=== PATIENT | female | born 1990 | race Caucasian/White ===

== ENCOUNTER 2017-09-30 06:43 | Outpatient (CLI) | payer MEDICAID ==
[2017-09-30 06:55] VITALS: BP 93/55
== END 2017-09-30 08:25 | disposition home or self-care (01) ==
LOC: TRG 06:43
PROVIDERS: ATTEND Obstetrics & Gynecology
DX: O47.03 False labor before 37 completed weeks of gestation, third trimester (principal); Z3A.36 36 weeks gestation of pregnancy; O99.333 Smoking (tobacco) complicating pregnancy, third trimester
CPT/HCPCS: 59025

== ENCOUNTER 2017-10-07 23:32 | Outpatient (CLI) | payer MEDICAID ==
[2017-10-07 23:59] VITALS: BP 110/55
== END 2017-10-08 00:42 | disposition home or self-care (01) ==
LOC: TRG 23:32
PROVIDERS: ATTEND Obstetrics & Gynecology
DX: O47.1 False labor at or after 37 completed weeks of gestation (principal); Z87.891 Personal history of nicotine dependence; Z3A.37 37 weeks gestation of pregnancy
CPT/HCPCS: 59025

== ENCOUNTER 2017-10-26 01:35 | Inpatient (IN) | payer MEDICAID ==
[2017-10-26] MEDS ORDERED: LACTATED RINGERS 1,000 ML ONE ×2 (02:04→03:23)
[2017-10-26] MEDS ORDERED: PITOCin/NS 20 UNIT/1000ML DRIP 20,000 MILLIUNITS/1,000 ML BAG IV ONE (03:13)
[2017-10-26] MEDS ORDERED: BICITRA ONE (03:13)
[2017-10-26] MEDS ORDERED: PEPCID IV ONE ×2 (03:14→04:19)
[2017-10-26] MEDS ORDERED: REGLAN ONE (03:14)
--- NOTE | 2017-10-26 03:20 | History and Physical Report ---
History of Present Illness Date of examination: 10/26/17 (@ 0300) Chief complaint: leakage of fluid around 29 History of present illness: 27 yo Hisp Fe with MORELIA 10/24/2017 presents to triage with c/o SROM since 29. HIstory obtained through black belt. States she receives care at the [facility]. No records to review. States she had about 5 visits, started care 6-7 months pf . States that she was told she would have a C/S on 11/01/2017. Previous hx C/S with 2nd baby because "baby was too big" around [address]ivered at [facility] in 2013 for C/S. No operative report available. Discussed through black belt risks of unknown scar and labor. Pt and verbalized through black belt understanding and agreed to go ahead with repeat C/S. Risks of surgery discussed through black belt to include, but is not limited to, infection, hemorrhage, injury to other organs, and maternal complications to include . Patient and verbalized understanding through black belt. Unknown GBS. NO allergies. Last ate or drank around 5-6 pm. Pt states that she has "low platelets" and was given a lab slip yesterday to have blood drawn. Has not seen perinatologist. States has had low platelets with each . Dr Cyr notified. Cervix FT/long. Contractions present, but spaced out. FHT's category I. IUP 40 2/7 weeks per MORELIA per pt Hx thrombocytopenia per pt Prev C/S with unknown scar Limited care Plan: admit, labs, NPO, IVF, prepare for repeat C/S, await platelets results, Past History Past Medical History: no pertinent history Past Surgical History: section (2013) Family/Genetic History: none Social history: no significant social history - Obstetrical History Expected Date of Delivery: 10/24/17 Actual Gestation: 40 Week(s) 2 Day(s) : 4 Para: 2 Hx # Term Pregnancies: 2 Induced : 1 Number of Living Children: 2 Medications and Allergies Allergies Allergy/AdvReac Type Severity Reaction Status Date / Time No Known Allergies Allergy Unverified 10/07/17 23:49 Home Medications Medication Instructions Recorded Confirmed Last Taken Type Pnv,Calcium 72/Iron/Folic Acid 1 tab PO QDAY 10/07/17 10/07/17 10/07/17 History [Pnv Plus Multivit Tab] Review of Systems All systems: negative - Vital Signs Vital signs: Vital Signs Pulse BP 67 102/64 10/26/17 01:50 10/26/17 01:50 Temp Pulse Resp BP Pulse Ox 67 102/64 10/26/17 01:50 10/26/17 01:50 - Physical Exam Breasts: Positive: normal Cardiovascular: Regular rate, No murmurs Lungs: Positive: Clear to auscultation Abdomen: Positive: other (gravid, transverse scar on lower abd) Genitourinary (Female): Positive: normal external genitalia, normal perenium Uterus: Positive: enlarged (gravid) Extremities: Positive: normal - Obstetrical FHR: category 1 Uterine Contraction Monitor Mode: External Cervical Dilatation: 1 (per RN) Cervical Effacement Percentage: 30 station: -4 Uterine Contraction Pattern: Irregular Uterine Contraction Intensity: Mild Results Result Diagrams: 10/26/17 02:40 All other labs normal. Assessment and Plan - Patient Problems (1) Spontaneous rupture of amniotic membranes Current Visit: Yes Status: Acute (2) Previous section Current Visit: Yes Status: Acute (3) Limited care Current Visit: Yes Status: Acute (4) Thrombocytopenia Current Visit: Yes Status: Acute
[2017-10-26] MEDS ORDERED: LACTATED RINGERS 1,000 ML IV ONE (03:34)
[2017-10-26 04:05] LABS: Hematocrit 27.3 % (30.3-42.9); Hemoglobin 9.3 gm/dl (10.1-14.3); Mean Corpuscular HGB Conc 34 % (30-34); Mean Corpuscular Hemoglobin 28 pg (28-32); Mean Corpuscular Volume 82 fl (79-97); Red Blood Count 3.34 M/mm3 (3.65-5.03); Red Cell Distribution Width 15.9 % (13.2-15.2)
[2017-10-26 04:08] LABS: Platelet Count 42 K/mm3 (140-440)
[2017-10-26] MEDS ORDERED: NACL 0.9% 500 ML 500 ML IV ONE (04:15)
[2017-10-26] MEDS ORDERED: REGLAN IV ONE (04:19)
[2017-10-26] MEDS ORDERED: BICITRA PO ONE (04:19)
[2017-10-26] MEDS ORDERED: BRETHINE SUB-Q ONE ×2 (04:43→05:53)
[2017-10-26] MEDS ORDERED: PITOCin/NS 20 UNIT/1000ML DRIP 20 UNITS/1,000 ML BAG IV SCH ×2 (05:00→17:00)
[2017-10-26] MEDS ORDERED: ANCEF/STERILE WATER 2 GM/20 ML 2 GM/20 ML SYRINGE IV NR (05:00)
[2017-10-26] MEDS ORDERED: LACTATED RINGERS 1,000 ML IV SCH (05:00)
[2017-10-26] MEDS ORDERED: POLYCILLIN/NS 2 GM/100 ML 2 GM/100 ML BAG IV SCH (05:30)
--- NOTE | 2017-10-26 05:31 | Event Note ---
Date: 10/26/[address] Cyr notified. Plan: Transfuse 2 units platelets, Brethine 0.25 mg sub cut.
--- NOTE | 2017-10-26 06:12 | Progress Note ---
Assessment and Plan - Patient Problems (1) 39 weeks gestation of Current Visit: Yes Status: Acute (2) SROM (spontaneous rupture of membranes) Current Visit: Yes Status: Acute (3) Previous section Current Visit: Yes Status: Acute Plan to address problem: Patient was not scheduled for repeat C/section. Repeat C/section was discussed with her. Risks and benefits of the procedure were discussed with her such as infection, hemorrhage requiring blood transfusion, injury to the bowel, bladder and blood vessels. She expressed understanding, her questions were answered, she gave her informed consent. Terbutaline. Keep NPO. IV hydration. Routine admitting labs. Will transfuse 2 units of platelets before the C/section. (4) Late care Current Visit: Yes Status: Acute (5) Poor historian Current Visit: Yes Status: Acute (6) Thrombocytopenia affecting Current Visit: Yes Status: Acute Plan to address problem: Thrombocytopenia, suspect ITP. Will do PT/PTT/INR. OB Sonogram. Will transfuse 2 units of platelet. F/U Platelet level before proceeding with C/ section. Will notify NICU. (7) Anemia Current Visit: Yes Status: Acute Qualifiers: Anemia type: iron deficiency Subjective - Subjective Date of service: 10/26/17 Principal diagnosis: SIUP at 39 weeks 39 weeks and 1 days with SROM, previous C/ section. Interval history: Patient is a 27 year old , LMP 01/2017, EDC 11/01/17 at 39 weeks and 1 day gestation who presented to the triage complaining of leaking fluid since around 3 AM. She denies any contractions or bleeding. She reports good movement. She recieves [facility] at [place] and states that she started care at 4-5 months and has been there only 5 times. Records are not available. The patient is a poor historian and most of the medical history was gathered from the . She also said that she had low platelets and was supposed to have labs yesterday but she did not do it. She had low platelet in her prior pregnancies as well. But, she can't tell if she has seen a rn orthopaedic. Current platelet is 42. She has no active bleeding. Objective - Vital Signs Vital Signs: Vital Signs - 12hr 10/26/17 10/26/17 10/26/17 01:50 03:51 04:03 Pulse Rate 67 65 76 Blood Pressure 102/64 115/66 O2 Sat by Pulse 93 Oximetry 10/26/17 10/26/17 10/26/17 04:08 04:13 04:18 Pulse Rate 67 75 70 Blood Pressure O2 Sat by Pulse 100 98 98 Oximetry 10/26/17 10/26/17 10/26/17 04:23 04:28 04:33 Pulse Rate 70 72 65 Blood Pressure O2 Sat by Pulse 99 97 99 Oximetry 10/26/17 10/26/17 10/26/17 04:38 04:43 04:48 Pulse Rate 75 78 78 Blood Pressure O2 Sat by Pulse 98 98 99 Oximetry 10/26/17 10/26/17 10/26/17 04:53 04:58 05:03 Pulse Rate 69 76 80 Blood Pressure O2 Sat by Pulse 98 99 99 Oximetry 10/26/17 10/26/17 10/26/17 05:08 05:13 05:18 Pulse Rate 73 97 H 109 H Blood Pressure O2 Sat by Pulse 98 99 98 Oximetry 10/26/17 10/26/17 10/26/17 05:23 05:28 05:33 Pulse Rate 111 H 105 H 113 H Blood Pressure O2 Sat by Pulse 99 99 100 Oximetry 10/26/17 05:38 Pulse Rate 121 H Blood Pressure O2 Sat by Pulse 100 Oximetry - Exam Cardiovascular: Normal S1, Normal S2 Lungs: Clear to auscultation Vulva: both: normal FHR: category 1 Uterine Contraction Monitor Mode: External Cervical Dilatation: 2 Cervical Effacement Percentage: 50 station: -2 Uterine Contraction Pattern: Irregular Uterine Contraction Intensity: Mild Deep Tendon Reflex Grade: Normal +2 - Labs Labs: Abnormal Labs 10/26/17 02:40 RBC 3.34 L Hgb 9.3 L Hct 27.3 L RDW 15.9 H Plt Count 42 L Laboratory Results - last 24 hr 10/26/17 10/26/17 10/26/17 02:40 02:40 04:55 WBC 6.0 RBC 3.34 L Hgb 9.3 L Hct 27.3 L MCV 82 MCH 28 MCHC 34 RDW 15.9 H Plt Count 42 L Hep Bs Antigen Non-reactive HIV 1&2 Antibody Rapid HIV P24 Antigen Blood Type O POSITIVE Antibody Screen Negative 10/26/17 04:55 WBC RBC Hgb Hct MCV MCH MCHC RDW Plt Count Hep Bs Antigen HIV 1&2 Antibody Rapid Non react HIV P24 Antigen Non react Blood Type Antibody Screen
--- NOTE | 2017-10-26 07:08 | Ultrasound Report ---
FINAL REPORT EXAM: US OB LIMITED HISTORY: SROM TECHNIQUE: A limited OB sonogram was obtained for evaluation of the amniotic fluid volume. FINDINGS: The MELLISSA is 14.2 cm which is normal. The heart rate is 147 BPM. The fetus is in cephalic presentation. IMPRESSION: Normal MELLISSA of 14.2 cm. The heart rate is 147 BPM. Cephalic presentation.
[2017-10-26 07:51] LABS: INR 0.9 (0.87-1.13)
[2017-10-26 07:52] LABS: Partial Thromboplastin Time 26.9 Sec. (24.2-36.6)
[2017-10-26] MEDS ORDERED: AMPICILLIN/NS 1 GM/50 ML 1 GM/50 ML BAG IV SCH (09:30)
--- NOTE | 2017-10-26 13:11 | Anesthesia Consultation ---
Anesthesia Consult and Med Hx Date of service: 10/26/17 - Airway Anesthetic Teeth Evaluation: Good (braces upper and lower) ROM Head & Neck: Adequate Mental/Hyoid Distance: Adequate Mallampati Class: Class II Intubation Access Assessment: Probably Good - Pre-Operative Health Status ASA Pre-Surgery Classification: ASA3 Proposed Anesthetic Plan: General - Pulmonary Hx Asthma: No - Cardiovascular System Hx Hypertension: No - Central Nervous System Hx Seizures: No Hx Psychiatric Problems: Yes (anxiety) - Endocrine Hx Renal Disease: No Hx Hypothyroidism: No Hx Hyperthyroidism: No - Hematic Hx Anemia: No Hx Sickle Cell Disease: No - Other Systems Hx Alcohol Use: No - Additional Comments Anesthesia Medical History Comments: Ideopathic thrombocytopenea
[2017-10-26] MEDS ORDERED: TORADOL IV PRN ×2 (13:15→16:19)
[2017-10-26] MEDS ORDERED: DILAUDID IV PRN (13:15)
[2017-10-26] MEDS ORDERED: ZOFRAN IV PRN ×2 (13:15→16:19)
--- NOTE | 2017-10-26 13:15 | Anesthesia Day of Surgery ---
Anesthesia Day of Surgery - Day of Surgery Patient Examined: Yes Patient H&P Reviewed: Yes Patient is NPO: Yes
[2017-10-26 14:20] LABS: Hematocrit 24.5 % (30.3-42.9); Hemoglobin 8.1 gm/dl (10.1-14.3); Mean Corpuscular HGB Conc 33 % (30-34); Mean Corpuscular Hemoglobin 27 pg (28-32); Mean Corpuscular Volume 82 fl (79-97); Red Blood Count 2.97 M/mm3 (3.65-5.03); Red Cell Distribution Width 15.8 % (13.2-15.2)
[2017-10-26 14:22] LABS: Platelet Count 82 K/mm3 (140-440)
[2017-10-26] MEDS ORDERED: XYLOCAINE MPF 2% ONE (15:06)
[2017-10-26] MEDS ORDERED: QUELICIN ONE (15:06)
[2017-10-26] MEDS ORDERED: DIPRIVAN 10 MG/ML IV ONE (15:06)
[2017-10-26] MEDS ORDERED: DILAUDID ONE (15:06)
[2017-10-26] MEDS ORDERED: ANCEF/STERILE WATER 2 GM/20 ML IV ONE (15:14)
[2017-10-26] MEDS ORDERED: NACL 0.9% IR ONE (15:26)
[2017-10-26] MEDS ORDERED: WATER FOR IRRIG STERILE IR ONE (15:26)
[2017-10-26] MEDS ORDERED: ZOFRAN ONE (15:50)
[2017-10-26] MEDS ORDERED: NEO SYNEPHRINE/NS Syringe(OR USE) IV ONE (15:52)
--- NOTE | 2017-10-26 16:16 | Operative Report ---
Operative Report Operative Report: Date of procedure: 10/26/2017 Pre-operative diagnosis: 1. Intrauterine at 40-2/7 weeks 2. Previous 3. Thrombocytopenia Post-operative diagnosis: Same Procedure name(s): Repeat low transverse section Surgeon: Eddie Akers MD Circuit Walker: None Anesthesia: Gen. endotracheal intubation by Dr. Ross EBL: 1000 mL Findings: A 3723 g female infant Apgars 8 at 1 minute 9 at 5 minutes. Clear amniotic fluid. Normal uterus. Normal tubes and ovaries bilaterally. Procedure: After the patient was prepped and draped in usual sterile fashion, and after general anesthesia was obtained, the skin knife was used to make a transverse skin incision through the previous skin scar. The incision was excised down to layer of the fascia, which was nicked in the midline and extended laterally using the Bovie cautery. The rectus muscles were dissected off the rectus fascia both superiorly and inferiorly. The rectus bellies in the midline, and the peritoneum was entered under direct visualization. The peritoneal incision was extended superiorly and inferiorly. A bladder flap was created and the bladder blade was then placed. The uterus was scored in a curvilinear linear fashion, entered in the midline revealing clear amniotic fluid. The infant's head was delivered onto the surgical field, and the oropharynx and nasopharynx were bulb suctioned. The rest of the ' s body was delivered, cord was doubly clamped and cut and the was handed to the waiting respiratory team. Cord blood was then obtained. The placenta was manually removed from the uterus, and the uterus removed from its normal anatomical position. After gentle uterine lavage, the incision was inspected and found to be without extensions. It was then closed in 2 layers using 0 Vicryl suture in a running interlocking fashion, the second layer imbricating the first. After good hemostasis was achieved, copious amounts or irrigation was performed, and the gutters were suctioned free of blood and blood clots. The Tisseel sealant was sprayed across the uterine incision. The uterus was then returned to its normal anatomical position, and after excellent hemostasis assured, the peritoneum was re-approximated using 3-0 Vicryl suture in a running interlocking fashion, and then the rectus muscles were re-approximated using 3-0 Vicryl suture in a [id number] configuration. The fascia was then re-approximated using 0 Vicryl suture in running interlocking fashion. The subcutaneous layer was made hemostatic using Bovie cautery, the Tisseel sealant was sprayed across the fascial incision and the skin edges re- approximated using 4-0 Vicryl suture in a sub-cuticular fashion. Patient tolerated the procedure well was transported to recovery in stable condition.
[2017-10-26] MEDS ORDERED: NARCAN 0.4 MG/1 ML IV PRN ×2 (16:19)
[2017-10-26] MEDS ORDERED: MOTRIN PO PRN (16:19)
[2017-10-26] MEDS ORDERED: SENOKOT PO PRN (16:19)
[2017-10-26] MEDS ORDERED: PHENERGAN PR PRN (16:19)
[2017-10-26] MEDS ORDERED: TUCKS PAD TP PRN (16:19)
[2017-10-26] MEDS ORDERED: PERCOCET 5/325 PO PRN (16:19)
[2017-10-26] MEDS ORDERED: NORCO 5/325 PO PRN (16:19)
[2017-10-26] MEDS ORDERED: MYLICON PO PRN (16:19)
[2017-10-26] MEDS ORDERED: METHERGINE IM PRN (16:19)
[2017-10-26] MEDS ORDERED: TYLENOL PO PRN (16:19)
[2017-10-26] MEDS ORDERED: LANSINOH TP PRN (16:19)
[2017-10-26] MEDS ORDERED: MILK OF MAGNESIA PO PRN (16:19)
[2017-10-26] MEDS ORDERED: NACL 0.9% 1000 ML 1,000 ML IV SCH (17:00)
[2017-10-26] MEDS ORDERED: SODIUM CHLORIDE FLUSH SYRINGE 10 ML IV SCH (17:00)
[2017-10-26] MEDS ORDERED: D5LR 1,000 ML IV SCH (17:00)
[2017-10-26] MEDS ORDERED: MORPHINE PCA 30MG/30ML IV SCH (17:00)
[2017-10-26] MEDS ORDERED: SUBLIMAZE ONE (18:26)
[2017-10-26 19:11] LABS: Hematocrit 22.9 % (30.3-42.9); Hemoglobin 7.5 gm/dl (10.1-14.3); Mean Corpuscular HGB Conc 33 % (30-34); Mean Corpuscular Hemoglobin 27 pg (28-32); Mean Corpuscular Volume 82 fl (79-97); Red Blood Count 2.79 M/mm3 (3.65-5.03)
[2017-10-26 19:14] LABS: Platelet Count 86 K/mm3 (140-440)
[2017-10-26] MEDS ORDERED: NACL 0.9% 500 ML 500 ML IV SCH (19:50)
[2017-10-26] MEDS ORDERED: TYLENOL PO ONE (19:51)
[2017-10-26] MEDS ORDERED: BENADRYL IV ONE (20:02)
[2017-10-26] MEDS: ANCEF/NS 1 GM/50 ML 1 GM/50 ML BAG IV SCH (20:57)
[2017-10-27 04:28] LABS: Hematocrit 24.5 % (30.3-42.9); Hemoglobin 8.1 gm/dl (10.1-14.3); Mean Corpuscular HGB Conc 33 % (30-34); Mean Corpuscular Hemoglobin 29 pg (28-32); Mean Corpuscular Volume 86 fl (79-97); Red Blood Count 2.85 M/mm3 (3.65-5.03); Red Cell Distribution Width 16.4 % (13.2-15.2)
[2017-10-27 04:30] LABS: Platelet Count 62 K/mm3 (140-440)
[2017-10-27] MEDS: ANCEF/NS 1 GM/50 ML 1 GM/50 ML BAG IV SCH (05:35)
[2017-10-27] MEDS ORDERED: BOOSTRIX IM ONE (06:00)
--- NOTE | 2017-10-27 08:57 | Progress Note ---
Assessment and Plan - Patient Problems (1) Status post Onset Date: 10/27/17 Current Visit: Yes Status: Acute Plan to address problem: A: S/P Repeat C Section - POD #1 Doing well Asymptomatic anemia - stable Thrombocytopenia - stable P: Continue RPOC Monitor bleeding Obtain Hematology consultation (2) Thrombocytopenia Onset Date: 10/27/17 Current Visit: Yes Status: Chronic Subjective - Subjective Date of service: 10/27/17 Principal diagnosis: s/p Repeat C Section - POD #1 Interval history: Pt is feeling well without complaints. She passed a large blood clot this morning, but denies dizziness or SOB. Patient reports: appetite normal, voiding normally, pain well controlled, ambulating normally, no dizzy ambulation, no flatus, no nauseated [place]: doing well, bottle feeding Objective - Vital Signs Latest vital signs: Vital Signs Temp Pulse Resp BP BP Pulse Ox 10/27/17 06:47 18 10/27/17 06:15 98.7 F 66 18 97/68 10/27/17 05:56 71 95 10/27/17 05:51 68 99 10/27/17 05:46 76 97 10/27/17 05:41 68 98 10/27/17 05:36 75 99 10/27/17 05:30 71 96 10/27/17 05:25 67 94 10/27/17 05:20 65 95 10/27/17 05:19 68 94 10/27/17 05:15 69 96 10/27/17 05:10 69 98 10/27/17 05:05 97.4 F L 18 L 20 100/51 100/51 97 10/27/17 04:28 94 H 99 10/27/17 04:23 97.6 F 64 20 97 10/27/17 04:18 64 99 10/27/17 03:39 67 100/54 10/27/17 03:09 67 96/54 10/27/17 02:39 69 96/56 10/27/17 02:09 73 101/56 10/27/17 01:39 73 97/52 10/27/17 01:09 75 94/51 10/27/17 00:39 78 92/53 10/27/17 00:08 80 91/54 10/27/17 00:03 80 91/55 10/26/17 23:58 67 97/53 08/14/18 23:53 83 92/55 14/18 23:48 83 95/58 14/18 23:43 76 88/54 14/18 23:33 78 91/55 14/18 23:22 75 93/54 14/18 23:05 75 18 93/54 14/18 22:52 76 92/47 1418 22:35 76 18 92/47 1418 22:16 82 94/51 18 22:05 97.4 F L 82 18 94/51 10/26/18 21:57 115 H 84/50 14/18 21:55 96 H 87/50 14/18 21:50 96.9 F L 96 H 20 87/50 100 18 21:41 93 H 88/52 18 21:26 123 H 79/44 14/18 21:11 117 H 86/50 18 21:00 106 H 18 87/53 18 20:56 106 H 87/53 18 20:41 113 H 81/48 14/18 20:30 116 H 80/48 14/18 20:26 116 H 80/48 10/26/18 20:13 116 H 97 18 20:11 103 H 88/55 18 20:08 116 H 96 18 20:04 92 H 93 18 20:03 109 H 97 18 20:00 97.1 F L 103 H 18 88/55 100 18 19:58 123 H 98 1418 19:56 96 H 92/59 18 19:53 96 H 98 1418 19:49 122 H 94 1418 19:48 100 H 98 1418 19:43 96 H 96 18 19:41 96 H 93/59 1418 19:38 90 97 1418 19:33 88 97 14/18 19:28 87 99 1418 19:26 77 91/57 18 19:20 106 H 98 1418 19:15 89 99 18 19:10 110 H 83/52 14/18 19:09 83 97 1418 19:05 96 H 95/53 1418 19:04 89 96 1418 19:00 94 H 93/56 14/18 18:59 79 98 1418 18:55 84 97/61 14/18 18:40 76 98/54 14/18 18:39 78 97 1418 18:35 83 99/57 14/18 18:34 74 98 14/18 18:30 73 98/53 14/18 18:29 86 97 18 17:50 63 15 111/62 98 18 17:35 97.8 F 58 L 13 108/63 96 1418 17:20 59 L 8 L 112/66 96 18 17:05 54 L 12 114/65 99 18 16:50 61 16 116/69 99 18 16:45 58 L 14 108/61 97 1418 16:40 67 17 106/40 99 18 16:35 97.7 F 64 20 108/60 96 18 15:01 97.7 F 16 18 14:04 72 100/59 14/18 12:51 82 100/64 18 12:50 83 100 18 12:45 84 99 18 12:40 97 H 99 18 12:35 79 98 18 12:30 84 99 14/18 12:25 85 100 14/18 12:20 88 99 14/18 12:18 84 95/59 14/18 12:15 81 98 1418 12:10 84 97 1418 12:05 79 98 1418 12:00 77 98 14/18 11:55 78 98 14/18 11:53 78 108/56 14/18 11:38 80 96/55 14/18 11:37 85 98 14/18 11:35 83 100/56 14/18 11:32 89 99 10/26/17 11:27 85 98/59 99 10/26/17 10:03 114 H 99 10/26/17 09:58 84 98 10/26/17 09:53 82 99 10/26/17 09:48 84 99 10/26/17 09:43 84 100 10/26/17 09:38 90 100 10/26/17 09:33 98 H 100 10/26/17 09:28 86 99 10/26/17 09:23 88 98 10/26/17 09:18 87 97 10/26/17 09:13 86 97 10/26/17 09:08 97 H 97 10/26/17 09:03 88 97 Intake and Output 10/26/17 10/27/17 10/27/17 22:59 06:59 14:59 Intake Total 1950 300 Output Total 700 250 Balance 1250 50 Intake: IV 1950 ANCEF/NS 1 GM/50 ML 1 gm 50 In 50 ml @ 100 mls/hr IV Q8H FORMERLY [facility], 1928–1983 Rx#:[id number] Intake, Free Water 300 Blood Product 0 0 Leukoreduced Red Blood 0 Cells Unit [id number] Leukoreduced Red Blood 0 0 Cells Unit [id number] Output: Urine 700 250 Indwelling Catheter 250 Other: Total, Output Amount 250 Estimated Blood Loss 700 - Exam Breasts: Present: deferred Cardiovascular: Present: Regular rate Lungs: Present: Clear to auscultation Abdomen: Present: normal appearance, soft Uterus: Present: normal, firm, fundal height below umbilicus Extremities: Present: normal Incision: Present: normal, dry, intact, dressed - Labs Labs: Abnormal lab results 10/26/17 10/26/17 10/26/17 Range/Units 02:40 13:52 18:45 WBC 15.7 H (4.5-11.0) K/mm3 RBC 2.97 L 2.79 L (3.65-5.03) M/mm3 Hgb 8.1 L 7.5 L (10.1-14.3) gm/dl Hct 24.5 L 22.9 L (30.3-42.9) % MCH 27 L 27 L (28-32) pg RDW 15.8 H 16.0 H (13.2-15.2) % Plt Count 82 L 86 L (140-440) K/mm3 Crossmatch See Detail 10/27/17 Range/Units 04:02 WBC 14.0 H (4.5-11.0) K/mm3 RBC 2.85 L (3.65-5.03) M/mm3 Hgb 8.1 L (10.1-14.3) gm/dl Hct 24.5 L (30.3-42.9) % MCH (28-32) pg RDW 16.4 H (13.2-15.2) % Plt Count 62 L (140-440) K/mm3 Crossmatch
--- NOTE | 2017-10-27 10:18 | Hem/Onc Consultation ---
History of Present Illness - Reason for Consult Consult date: 10/27/17 - History of Present Illness Note dictated. Follow CBCs. Check liver function tests. Anemia workup. If platelets are below 50,000, transfuse. Past History Social history: no significant social history Medications and Allergies Allergies Allergy/AdvReac Type Severity Reaction Status Date / Time No Known Allergies Allergy Unverified 10/07/17 23:49 Home Medications Medication Instructions Recorded Confirmed Last Taken Type Pnv,Calcium 72/Iron/Folic Acid 1 tab PO QDAY 10/07/17 10/26/17 10/25/17 10:00 History [Pnv Plus Multivit Tab] 1 Ferrous Sulfate [Feosol 325 MG tab] 325 mg PO BID #60 tablet 10/26/17 Unknown Rx HYDROcodone/APAP 5-325 [[place] 1 each PO Q6HR PRN #30 tablet 10/26/17 Unknown Rx 5/325] Ibuprofen [Motrin] 800 mg PO Q8HR PRN #30 tablet 10/26/17 Unknown Rx Vit Calc,Iron,Folic 1 each PO DAILY #30 tablet 10/26/17 Unknown Rx [ Vitamins] Active Meds: Active Medications Acetaminophen (Tylenol) 650 mg PO Q4H PRN PRN Reason: Fever >100.5/OJEDA Acetaminophen/Hydrocodone Bitart ([place] 5/325) 1 each PO Q4H PRN PRN Reason: Pain, Moderate (4-6) Ferrous Sulfate (Feosol) 325 mg PO QDAY CLAUDIA Oxytocin/Sodium Chloride (Pitocin/Ns 20 Unit/1000ml Drip) 20 units in 1,000 mls @ 0 mls/hr IV TITR CLAUDIA Last Admin: 10/26/17 16:30 Dose: 250 mls/hr Dextrose/Lactated Ringer's (D5lr) 1,000 mls @ 125 mls/hr IV DIRECT CLAUDIA Last Admin: 10/26/17 20:40 Dose: 125 mls/hr Sodium Chloride (Nacl 0.9% 1000 Ml) 1,000 mls @ 42 mls/hr IV DIRECT CLAUDIA Oxytocin/Sodium Chloride (Pitocin/Ns 20 Unit/1000ml Drip) 20 units in 1,000 mls @ 250 mls/hr IV DIRECT CLAUDIA Last Admin: 10/26/17 15:34 Dose: 250 mls/hr Ibuprofen (Motrin) 800 mg PO Q6H PRN PRN Reason: Pain, Mild (1-3) Ketorolac Tromethamine (Toradol) 30 mg IV Q6H PRN PRN Reason: Pain, Moderate (4-6) Stop: 10/31/17 16:18 Last Admin: 10/27/17 08:17 Dose: 30 mg Magnesium Hydroxide (Milk Of Magnesia) 30 ml PO QHS PRN PRN Reason: Constip Unrelieved By Senna Measles/Mumps/Rubella Vaccine Live (M-M-R Ii Vaccine) 0.5 ml SUB-Q .ONCE ONE Stop: 10/27/17 16:22 Methylergonovine Maleate (Methergine) 0.2 mg IM Q4H PRN PRN Reason: Uterine Bleeding Last Admin: 10/26/17 16:15 Dose: 0.2 mg Morphine Sulfate (Morphine Senior Customer Service Representative 30mg/30ml) 0 mg IV DIRECT CLAUDIA; Protocol Last Admin: 10/26/17 17:06 Dose: 1 mg Multi-Ingredient Ointment (Lansinoh) 1 applic TP PRN PRN PRN Reason: dryness/cracking Last Admin: 10/27/17 08:26 Dose: 1 applic Multivitamins/Iron/Calcium ( Vitamin) 1 each PO QDAY CLAUDIA Naloxone HCl (Narcan 0.4 Mg/1 Ml) 0.1 mg IV Q2MIN PRN PRN Reason: Res Rate </= 8 or 02 SAT < 92% Ondansetron HCl (Zofran) 4 mg IV Q8H PRN PRN Reason: Nausea And Vomiting Last Admin: 10/27/17 02:46 Dose: 4 mg Oxycodone/Acetaminophen (Percocet 5/325) 2 tab PO Q6H PRN PRN Reason: Pain, Moderate (4-6) Promethazine HCl (Phenergan) 25 mg SD Q6H PRN PRN Reason: N/V IF NPO AND NO IV ACCESS Senna (Senokot) 17.2 mg PO QHS PRN PRN Reason: Constipation Simethicone (Mylicon) 80 mg PO Q6H PRN PRN Reason: Gas pain Sodium Chloride (Sodium Chloride Flush Syringe 10 Ml) 10 ml IV PRN CLAUDIA Witch Sushma/Glycerin (Tucks Pad) 1 each TP PRN PRN PRN Reason: Hemorrhoids/cleansing/soothing Exam - Constitutional Vitals: Last Vital Signs Temp 98.5 F 10/27/17 08:56 Pulse 70 10/27/17 08:56 Resp 18 10/27/17 08:56 BP 93/54 10/27/17 08:56 Pulse Ox 98 10/27/17 08:56 Results - Labs lab Results: Laboratory Results - last 24 hr 10/26/17 10/26/17 10/26/17 02:40 02:40 13:52 WBC 10.4 RBC 2.97 L Hgb 8.1 L Hct 24.5 L MCV 82 MCH 27 L MCHC 33 RDW 15.8 H Plt Count 82 L RPR Nonreactive Blood Type O POSITIVE Antibody Screen Negative Crossmatch See Detail 10/26/17 10/27/17 18:45 04:02 WBC 15.7 H 14.0 H RBC 2.79 L 2.85 L Hgb 7.5 L 8.1 L Hct 22.9 L 24.5 L MCV 82 86 MCH 27 L 29 MCHC 33 33 RDW 16.0 H 16.4 H Plt Count 86 L 62 L RPR Blood Type Antibody Screen Crossmatch
[2017-10-27] MEDS: PRENATAL VITAMIN PO SCH (10:36)
[2017-10-27] MEDS: FEOSOL PO SCH (10:36)
[2017-10-27 12:30] LABS: % Iron Saturation 29.72 %
[2017-10-27 12:32] LABS: Alanine Aminotransferase 6 units/L (7-56); Albumin 2.4 g/dL (3.9-5); BUN/Creatinine Ratio 10; Blood Urea Nitrogen 5 mg/dL (7-17); Calcium 7.6 mg/dL (8.4-10.2); Hemolysis Index 2
--- NOTE | 2017-10-27 12:37 | Consultation ---
REFERRING PHYSICIAN: Dr. Eddie Akers. REASON FOR CONSULTATION: Thrombocytopenia. HISTORY OF PRESENT ILLNESS: The patient is a 27-year-old female who has recently had delivered. The patient has had a , today is postop day #1. She on her admission, her platelet count was found to be 42,000. She did get 2 units of platelets and 2 units of packed RBCs. Platelets came up to be 82, today they are 62. Because of thrombocytopenia, Hematology consult was called. On review of records, the patient has had thrombocytopenia even in her second trimester. Upon questioning the patient, the patient states she has had thrombocytopenia even when she was not . She is not sure if she has ever seen a greenhouse specialist. Postop, she has had some passing of clots. Her hemoglobin has stayed stable, today was 8.1. Dr. Akers told me that the baby is doing fine without any bleeding issues. The patient denies any alcohol use. Denies any history of hepatitis. She has had hepatitis checkup during her evaluation. PHYSICAL EXAMINATION: GENERAL: The patient is awake and oriented. No obvious bleeding. CHEST: Clear. CARDIOVASCULAR: Regular rate and rhythm. ABDOMEN: . EXTREMITIES: No clubbing, cyanosis, or edema. LABORATORY WORK: Today's labs show her hemoglobin to be 8.1, white count 14, platelets of 62,000. The patient's HIV test, hepatitis B antigen, and rubella IgG antibody was done. Her HIV was negative, hepatitis B surface antigen was negative, and RPR was negative. INR was 0.9. ASSESSMENT: Thrombocytopenia, chronic, possibly chronic idiopathic thrombocytopenic purpura in this patient. PLAN: At this time, watch platelets. If she drops below 50, she would need platelets. I can follow her as outpatient and monitor her platelets. We will also check liver function tests. JOB# [id number] LUCIEN/VÍCTOR
[2017-10-27] MEDS ORDERED: M-M-R II VACCINE SUB-Q ONE (16:21)
[2017-10-27 20:33] LABS: Hematocrit 20.7 % (30.3-42.9); Hemoglobin 6.9 gm/dl (10.1-14.3)
[2017-10-27] MEDS ORDERED: NACL 0.9% 500 ML 500 ML IV ONE (20:48)
[2017-10-27] MEDS ORDERED: TYLENOL PO ONE (20:49)
[2017-10-27] MEDS ORDERED: BENADRYL IV ONE (20:49)
[2017-10-28 06:16] LABS: Basophils % (Auto) 0.2 % (0.0-1.8); Eosinophils # (Auto) 0.1 K/mm3 (0.0-0.4); Eosinophils % (Auto) 0.5 % (0.0-4.3); Hematocrit 22.9 % (30.3-42.9); Hemoglobin 7.7 gm/dl (10.1-14.3); Lymphocytes # (Auto) 2.3 K/mm3 (1.2-5.4); Mean Corpuscular HGB Conc 34 % (30-34); Mean Corpuscular Hemoglobin 29 pg (28-32); Mean Corpuscular Volume 86 fl (79-97); Monocytes # (Auto) 0.8 K/mm3 (0.0-0.8); Red Blood Count 2.67 M/mm3 (3.65-5.03); Red Cell Distribution Width 15.9 % (13.2-15.2)
[2017-10-28 06:31] LABS: Platelet Count 78 K/mm3 (140-440)
--- NOTE | 2017-10-28 09:46 | Progress Note ---
Assessment and Plan - Patient Problems (1) Status post Onset Date: 10/27/17 Current Visit: Yes Status: Resolved Plan to address problem: A: S/P Repeat C Section - POD #2 Doing well Asymptomatic anemia - improved after blood transfusion Thrombocytopenia - improving P: Continue RPOC Monitor bleeding Appreciate Hematology consultation Anticipate discharge in 24-48hrs if remains stable. (2) Thrombocytopenia Onset Date: 10/27/17 Current Visit: Yes Status: Chronic Subjective - Subjective Date of service: 10/28/17 Principal diagnosis: s/p Repeat C Section - POD #2 Interval history: Pt is feeling well without complaints. She is tolerating a reg diet without nausea or vomiting, ambulating and voiding without difficulty. She states she passed a small blood clots this morning, but denies dizziness or SOB. Patient reports: appetite normal, voiding normally, pain well controlled, flatus , ambulating normally, no dizzy ambulation, no nauseated : doing well, nursing well Objective - Vital Signs Latest vital signs: Vital Signs Temp Pulse Resp BP BP Pulse Ox 10/28/17 03:45 98.1 F 70 16 100/70 10/28/17 03:15 98.3 F 72 16 110/70 10/28/17 02:45 98.5 F 68 16 110/74 10/28/17 02:44 98.4 F 76 16 110/74 10/28/17 02:14 98.4 F 74 18 120/70 10/28/17 01:44 98.5 F 70 18 110/70 10/28/17 01:29 98.5 F 74 16 110/70 10/28/17 01:18 98.5 F 72 18 120/70 10/28/17 00:15 98.8 F 76 18 110/70 10/27/17 23:45 99 F 78 20 110/70 10/27/17 23:15 98.5 F 76 20 120/80 10/27/17 23:00 98.5 F 78 18 120/80 10/27/17 22:44 98.6 F 81 16 127/79 10/27/17 22:05 18 10/27/17 17:50 98.6 F 73 18 97/57 100 10/27/17 17:20 98.5 F 74 18 88/46 99 10/27/17 11:50 98.6 F 65 18 92/55 100 Intake and Output 10/27/17 10/28/17 10/28/17 22:59 06:59 14:59 Intake Total 600 500 Balance 600 500 Intake: Oral 480 Intake, Free Water 120 Blood Product 500 Leukoreduced Red Blood 250 Cells Unit [id number] Leukoreduced Red Blood 250 Cells Unit [id number] Other: Total, Intake Amount 240 - Exam Breasts: Present: deferred Cardiovascular: Present: Regular rate Lungs: Present: Clear to auscultation Abdomen: Present: normal appearance, soft Uterus: Present: normal, firm, fundal height below umbilicus Extremities: Present: normal Incision: Present: normal, dry, intact - Labs Labs: Abnormal lab results 10/26/17 10/27/17 10/27/17 Range/Units 02:40 11:32 11:32 RBC (3.65-5.03) M/mm3 Hgb (10.1-14.3) gm/dl Hct (30.3-42.9) % RDW (13.2-15.2) % Plt Count (140-440) K/mm3 [place] % (Auto) (0.0-7.3) % Sodium 132 L (137-145) mmol/L BUN 5 L (7-17) mg/dL Creatinine 0.5 L (0.7-1.2) mg/dL Calcium 7.6 L (8.4-10.2) mg/dL Ferritin 11.3 L (13.0-400.0) ng/mL ALT 6 L (7-56) units/L Total Protein 4.7 L (6.3-8.2) g/dL Albumin 2.4 L (3.9-5) g/dL Crossmatch See Detail 10/27/17 10/27/17 10/28/17 Range/Units 20:19 20:19 05:44 RBC 2.67 L (3.65-5.03) M/mm3 Hgb 6.9 L 7.7 L (10.1-14.3) gm/dl Hct 20.7 L 22.9 L (30.3-42.9) % RDW 15.9 H (13.2-15.2) % Plt Count 72 L 78 L (140-440) K/mm3 [place] % (Auto) 8.0 H (0.0-7.3) % Sodium (137-145) mmol/L BUN (7-17) mg/dL Creatinine (0.7-1.2) mg/dL Calcium (8.4-10.2) mg/dL Ferritin (13.0-400.0) ng/mL ALT (7-56) units/L Total Protein (6.3-8.2) g/dL Albumin (3.9-5) g/dL Crossmatch
[2017-10-28] MEDS: FEOSOL PO SCH (10:07)
[2017-10-28] MEDS: PRENATAL VITAMIN PO SCH (10:07)
[2017-10-29 07:01] LABS: Basophils % (Auto) 0.3 % (0.0-1.8); Eosinophils # (Auto) 0.1 K/mm3 (0.0-0.4); Eosinophils % (Auto) 0.9 % (0.0-4.3); Hematocrit 22.5 % (30.3-42.9); Hemoglobin 7.6 gm/dl (10.1-14.3); Lymphocytes % (Auto) 25.6 % (13.4-35.0); Mean Corpuscular HGB Conc 34 % (30-34); Mean Corpuscular Hemoglobin 29 pg (28-32); Mean Corpuscular Volume 86 fl (79-97); Monocytes # (Auto) 0.6 K/mm3 (0.0-0.8); Monocytes % (Auto) 7.3 % (0.0-7.3); Platelet Count 118 K/mm3 (140-440); Red Blood Count 2.63 M/mm3 (3.65-5.03); Red Cell Distribution Width 15.6 % (13.2-15.2)
--- NOTE | 2017-10-29 09:13 | Hem/Onc Progress Note ---
Assessment and Plan plts improving anemia- fe def pt can go home on po fe to see me in my in 3-4 w Subjective Date of service: 10/29/17 Interval history: pt feels better. to go home today Objective - Constitutional Vitals: Last Vital Signs Temp 98.2 F 10/29/17 01:57 Pulse 62 10/29/17 01:57 Resp 18 10/29/17 01:57 BP 101/47 10/29/17 01:57 Pulse Ox 99 10/29/17 01:57 Pain Intensity (0-10): denies any pain General appearance: no acute distress Performance status: 2- selfcare, ambulatory - Neck Neck: supple - Cardiovascular Rhythm: regular - Gastrointestinal General gastrointestinal: Present: other (post ) - Labs Lab Results: Laboratory Results - last 24 hr 10/29/17 05:53 WBC 7.6 RBC 2.63 L Hgb 7.6 L Hct 22.5 L MCV 86 MCH 29 MCHC 34 RDW 15.6 H Plt Count 118 L Lymph % (Auto) 25.6 [place] % (Auto) 7.3 Eos % (Auto) 0.9 Baso % (Auto) 0.3 Lymph # 2.0 [place] # 0.6 Eos # 0.1 Baso # 0.0 Seg Neutrophils % 65.9 Seg Neutrophils # 5.0
[2017-10-29 11:43] VITALS: BP 121/79
--- NOTE | 2017-10-29 13:04 | Progress Note ---
Assessment and Plan - Patient Problems (1) Status post Onset Date: 10/27/17 Current Visit: Yes Status: Resolved Plan to address problem: A: S/P Repeat C Section - POD #3 Doing well Asymptomatic anemia - improved after blood transfusion Thrombocytopenia - improving P: May go home today Follow up with Hematology. (2) Thrombocytopenia Onset Date: 10/27/17 Current Visit: Yes Status: Chronic Subjective - Subjective Date of service: 10/29/17 Principal diagnosis: s/p Repeat C Section - POD #3 Interval history: Pt is feeling well without complaints. She is tolerating a reg diet without nausea or vomiting, ambulating and voiding without difficulty. She denies further bleeding, and wants to go home. Patient reports: appetite normal, voiding normally, pain well controlled, flatus , ambulating normally, no dizzy ambulation, no nauseated : doing well, nursing well Objective - Vital Signs Latest vital signs: Vital Signs Temp Pulse Resp BP BP Pulse Ox 10/29/17 08:00 98.7 F 66 18 121/79 10/29/17 01:57 98.2 F 62 18 101/47 99 10/28/17 17:51 98.2 F 74 20 100/49 97 Intake and Output 10/28/17 10/29/17 10/29/17 22:59 06:59 14:59 Intake Total 240 300 Balance 240 300 Intake: Oral 240 Intake, Free Water 300 Other: Total, Intake Amount 240 # Voids Void 1 - Exam Breasts: Present: deferred Cardiovascular: Present: Regular rate Lungs: Present: Clear to auscultation Abdomen: Present: normal appearance, soft Uterus: Present: normal, firm, fundal height below umbilicus Extremities: Present: normal Incision: Present: normal, dry, intact - Labs Labs: Abnormal lab results 10/29/17 Range/Units 05:53 RBC 2.63 L (3.65-5.03) M/mm3 Hgb 7.6 L (10.1-14.3) gm/dl Hct 22.5 L (30.3-42.9) % RDW 15.6 H (13.2-15.2) % Plt Count 118 L (140-440) K/mm3 Laboratory Results - last 24 hr 10/29/17 05:53 WBC 7.6 RBC 2.63 L Hgb 7.6 L Hct 22.5 L MCV 86 MCH 29 MCHC 34 RDW 15.6 H Plt Count 118 L Lymph % (Auto) 25.6 [place] % (Auto) 7.3 Eos % (Auto) 0.9 Baso % (Auto) 0.3 Lymph # 2.0 [place] # 0.6 Eos # 0.1 Baso # 0.0 Seg Neutrophils % 65.9 Seg Neutrophils # 5.0
--- NOTE | 2017-10-29 13:21 | Discharge Summary ---
Providers - Providers Date of Admission: 10/26/17 05:09 Date of discharge: 10/29/17 Attending physician: TYLER RICE 10/27/17 08:57 Consult to Physician [CONS] Routine Comment: Consulting Provider: YESSENIA BLUM Physician Instructions: Reason For Exam: Thrombocytopenia Primary care physician: TYLER RICE Hospitalization Reason for admission: section, IUP at term, other (Thrombocytopenia) Delivery: Procedure: section, repeat low transverse Episiotomy: none Incision: normal, dry, intact Other procedures: none complications: transfusion (blood) Discharge diagnosis: IUP at term delivered [place] baby: female Hospital course: Patient is a 27 year old HF , LMP 01/2017, EDC 11/01/17 at 39 weeks and 1 day gestation who presented to the triage complaining of leaking fluid but she denies any contractions or bleeding. She reports good movement. She received PNC at [facility] and states that she had low platelets and was supposed to have labs yesterday but she did not do it. She had low platelet in her prior pregnancies as well, but, denies seeing a [facility] [employer]. Her platelet count was 42K, thus she received 2 units prior to her Repeat C Section. She tolerated her C Section, and by POD #3 she was tolerating a reg diet without nausea or vomiting, ambulating and voiding without difficulty after receiving another 2 units of blood. Currently her H/H is 7.6/22.5 and platelet count up to 118K. She has been cleared for discharge by the consulting [facility] [employer], and will follow up in 3 weeks. Condition at discharge: Good Disposition: DC-01 TO HOME OR SELFCARE - Discharge Diagnoses (1) Status post Status: Resolved (2) Thrombocytopenia Status: Chronic Plan - Discharge Medications Prescriptions: Ferrous Sulfate [Feosol 325 MG tab] 325 mg PO BID #60 tablet HYDROcodone/APAP 5-325 [[place] 5/325] 1 each PO Q6HR PRN #30 tablet PRN Reason: Pain Ibuprofen [Motrin] 800 mg PO Q8HR PRN #30 tablet PRN Reason: Moder Pain Unrelieved By [place] Vit Calc,Iron,Folic [ Vitamins] 1 each PO DAILY #30 tablet - Provider Discharge Summary Activity: routine, no sex for 6 weeks, no heavy lifting 4 weeks, no strenuous exercise Diet: routine Instructions: routine Additional instructions: [] Smoking cessation referral if applicable(refer to patient education folder for contact #) [] Refer to [facility]'s [facility] Booklet Call your doctor immediately for: * Fever > 100.5 * Heavy vaginal bleeding ( >1 pad per hour) * Severe persistent headache * Shortness of breath * Reddened, hot, painful area to leg or breast * Drainage or odor from incision. * Keep incision clean and dry at all times and follow doctor's instructions regarding bathing/showering - Follow up plan Follow up: TYLER RICE MD [Primary Care Provider] - 7 Days YESSENIA BLUM MD [Staff Physician] - 14 Days
== END 2017-10-29 18:20 | disposition home or self-care (01) | DRG 765 ==
LOC: TRG 01:35 → LD 02:10 → TRG 05:08 → LD 05:09 → APU 18:34 → LD 19:58 → OB 10-27 06:10
PROVIDERS: ADMIT Obstetrics & Gynecology; ATTEND Obstetrics & Gynecology
PROC: 10D00Z1 Extraction of Products of Conception, Low, Open Approach (ICD-10-PCS; principal; 2017-10-26)
PROC: 30233R1 Transfusion of Nonautologous Platelets into Peripheral Vein, Percutaneous Approach (ICD-10-PCS; 2017-10-26)
PROC: 30233N1 Transfusion of Nonautologous Red Blood Cells into Peripheral Vein, Percutaneous Approach (ICD-10-PCS; 2017-10-26)
PROC: 3E0234Z Introduction of Serum, Toxoid and Vaccine into Muscle, Percutaneous Approach (ICD-10-PCS; 2017-10-27)
DX: O42.02 Full-term premature rupture of membranes, onset of labor within 24 hours of rupture (principal); D62 Acute posthemorrhagic anemia; O99.12 Other diseases of the blood and blood-forming organs and certain disorders involving the immune mechanism complicating childbirth; D69.3 Immune thrombocytopenic purpura; O34.211 Maternal care for low transverse scar from previous cesarean delivery; Z37.0 Single live birth; Z23 Encounter for immunization; Z3A.39 39 weeks gestation of pregnancy
CPT/HCPCS: 36415; 36430; 76815; 80053; 82607; 82728; 82747; 83550; 85014; 85018; 85025; 85027; 85045; 85049; 85610; 85730; 86592; 86706; 86762; 86850; 86900; 86901; 86920; 87806; 90707; 99211; A6250; C9250; G0463; J0290; J0330; J0690; J1170; J1200; J1885; J2210; J2270; J2370; J2405; J2590; J2704; J2765; J3010; J3105; J7040; J7120; J7121; P9016; P9035

== ENCOUNTER 2019-02-17 15:15 | Emergency (ER) | payer MEDICAID ==
[2019-02-17 15:31] VITALS: BP 97/58
--- NOTE | 2019-02-17 15:31 | Event Note ---
ED Screening Note ED Screening Note: pt states she has URI symptoms began two days ago +subjective fever, chills, dry cough, generalized body aches, no rhinorrhea no N/V/D no sore throat no ear pain no abd pain took advil, tylenol states she took advil around 2 PM today This initial assessment/diagnostic orders/clinical plan/treatment(s) is/are subject to change based on patients health status, clinical progression and re- assessment by fellow clinical providers in the ED. Further treatment and workup at subsequent clinical providers discretion. Patient/guardian urged not to elope from the ED as their condition may be serious if not clinically assessed and managed. Initial orders include: flu swab
--- NOTE | 2019-02-17 16:06 | Emergency Department Report ---
Chief Complaint: Upper Respiratory Infection Stated Complaint: FEVER/CHILLS Time Seen by Provider: 02/17/19 15:28 - HPI History of Present Illness: Ms. Estrella presents with subjective fever, chills non productive cough. MSE performed and completed. Patient appears well. - Exam Vital Signs: Vital Signs 02/17/19 02/17/19 15:16 15:31 Temperature 98.5 F Pulse Rate 62 101 H Respiratory 18 16 Rate Blood Pressure 90/51 Blood Pressure 97/58 [Right] O2 Sat by Pulse 100 Oximetry MSE screening note: Focused history and physical exam performed. Due to findings the following was ordered: ED Disposition for MSE Clinical Impression: Viral syndrome Disposition: Z- MED SCREENING EXAM-LEFT Condition: Stable
== END 2019-02-17 17:36 | disposition left against medical advice (07) ==
LOC: ED 15:15
DX: B34.9 Viral infection, unspecified (principal)
CPT/HCPCS: 87400; 99283

== ENCOUNTER 2020-09-10 15:56 | Emergency (ER) | payer MEDICAID ==
[2020-09-10 17:07] VITALS: BP 97/58
--- NOTE | 2020-09-10 17:09 | Emergency Department Report ---
ED General Adult HPI - General Chief complaint: Extremity Problem,Nontraumatic Stated complaint: RIGHT UPPER ARM NUMB Time Seen by Provider: 09/10/20 17:05 Source: patient Mode of arrival: Ambulatory Limitations: No Limitations - History of Present Illness Initial comments: 30-year-old female patient presents with complaints of right elbow numb ness starting around 1 AM last night. She denies any trauma to the arm, swelling, pain, decreased range of motion, shoulder pain/neck pain, or hand pain/numbness/tingling/weakness. 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 No prior medical history per patient. - Related Data Home Medications Medication Instructions Recorded Confirmed Last Taken Pnv,Calcium 72/Iron/Folic Acid 1 tab PO QDAY 10/07/17 10/26/17 10/25/17 10:00 [Pnv Plus Multivit Tab] 1 Previous Rx's Medication Instructions Recorded Last Taken Type Ferrous Sulfate [Feosol 325 MG tab] 325 mg PO BID #60 tablet 10/26/17 Unknown Rx HYDROcodone/APAP 5-325 [[place] 1 each PO Q6HR PRN #30 tablet 10/26/17 Unknown Rx 5/325] Ibuprofen [Motrin] 800 mg PO Q8HR PRN #30 tablet 10/26/17 Unknown Rx Vit Calc,Iron,Folic 1 each PO DAILY #30 tablet 10/26/17 Unknown Rx [ Vitamins] Allergies Allergy/AdvReac Type Severity Reaction Status Date / Time No Known Allergies Allergy Unverified 10/07/17 23:49 ED Review of Systems ROS: Stated complaint: RIGHT UPPER ARM NUMB Other details as noted in HPI Constitutional: denies: fever Musculoskeletal: denies: joint swelling, arthralgia Skin: denies: change in color Neurological: paresthesias ED Past Medical Hx - Past Medical History Previous Medical History?: Yes Hx Hypertension: No Hx Diabetes: No Hx Deep Vein Thrombosis: No Hx Renal Disease: No Hx Sickle Cell Disease: No Hx Seizures: No Hx Psychiatric Treatment: Yes (schizophrenia) Hx Asthma: No Hx HIV: No - Surgical History Past Surgical History?: Yes Additional Surgical History: x 2 - Social History Smoking Status: Current Every Day Smoker Substance Use Type: None - Medications Home Medications: Home Medications Medication Instructions Recorded Confirmed Last Taken Type Pnv,Calcium 72/Iron/Folic Acid 1 tab PO QDAY 10/07/17 10/26/17 10/25/17 10:00 History [Pnv Plus Multivit Tab] 1 Ferrous Sulfate [Feosol 325 MG tab] 325 mg PO BID #60 tablet 10/26/17 Unknown Rx HYDROcodone/APAP 5-325 [[place] 1 each PO Q6HR PRN #30 tablet 10/26/17 Unknown Rx 5/325] Ibuprofen [Motrin] 800 mg PO Q8HR PRN #30 tablet 10/26/17 Unknown Rx Vit Calc,Iron,Folic 1 each PO DAILY #30 tablet 10/26/17 Unknown Rx [ Vitamins] ED Physical Exam - General Limitations: No Limitations General appearance: alert, in no apparent distress - Head Head exam: Present: atraumatic, normocephalic - Eye Eye exam: Present: normal appearance - Neck Neck exam: Present: full ROM. Absent: tenderness - Respiratory Respiratory exam: Absent: respiratory distress - Cardiovascular Cardiovascular Exam: Present: regular rate - Expanded Upper Extremity Exam Right Elbow exam: Present: normal inspection, full ROM. Absent: tenderness, swelling, abrasion, ecchymosis, deformity, crepidus, dislocation, erythema - Neurological Exam Neurological exam: Present: alert, oriented X3, normal gait - Psychiatric Psychiatric exam: Present: normal affect, normal mood - Skin Skin exam: Present: warm, dry, intact, normal color. Absent: rash ED Medical Decision Making - Medical Decision Making 30-year-old female patient presents with complaints of right elbow numbness starting around 1 AM last night. She denies any trauma to the arm, swelling, pain, decreased range of motion, shoulder pain/neck pain, or hand pain/numbness/tingling/weakness. 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 No prior medical history per patient. Right elbow exam is normal. Recommend follow-up with PCP for further evaluation and treatment. For now will place Gabe wrap and recommend icing. Her vitals are normal, she is well-appearing, she is stable for discharge home. Strict return precautions were discussed in detail with patient who verbalized understanding Critical care attestation.: If time is entered above; I have spent that time in minutes in the direct care of this critically ill patient, excluding procedure time. ED Disposition Clinical Impression: Arm paresthesia, right Disposition: DC-01 TO HOME OR SELFCARE Is pt being admited?: No Condition: Stable Instructions: Paresthesia, Golfer's Elbow Referrals: [facility] [Provider Group] - 3-5 Days
== END 2020-09-10 17:20 | disposition home or self-care (01) ==
LOC: ED 15:56
DX: R20.2 Paresthesia of skin (principal); F20.9 Schizophrenia, unspecified; F17.200 Nicotine dependence, unspecified, uncomplicated; Z98.890 Other specified postprocedural states; Z79.1 Long term (current) use of non-steroidal anti-inflammatories (NSAID); Z79.899 Other long term (current) drug therapy
CPT/HCPCS: 99281